=== PATIENT | female | born 1990 | race Caucasian/White ===

== ENCOUNTER 2024-03-23 19:30 | Emergency (ER) | payer OTHER, SELFPAY ==
[2024-03-23 19:35] VITALS: BP 121/76
[2024-03-23 19:54] LABS: % Basophils 0.5 % (0-2); % Eosinophils 2.6 % (0-6); % Immature Granulocytes 0.2 % (0-0.5); % Lymphocytes 36.1 % (20.5-51.1); % Monocytes 6.6 % (1.7-9.3); Absolute Basophils 0.1 10^3/uL (0-0.2); Absolute Eosinophils 0.3 10^3/uL (0-0.7); Absolute Monocytes 0.7 10^3/uL (0.1-0.6); Hematocrit 40.2 % (37.0-47.0); Hemoglobin 14.1 g/dL (12.0-16.0); Mean Corp Hgb Conc. 35.1 g/dL (33.0-37.0); Mean Corpuscular Hgb 29.5 pg (27.0-31.0); Mean Corpuscular Volume 84.1 fL (81.0-99.0); Mean Platelet Volume 10.2 fL (7.4-10.4); Nucleated Red Blood Cells % 0 %; Platelet Count 239 10^3/uL (130-400); Red Blood Cell Count 4.78 10^6/uL (4.20-5.40); Red Cell Dist. Width 12.6 % (11.5-14.5); White Blood Cell Count 11.1 10^3/uL (4.8-10.8)
[2024-03-23 20:12] LABS: HCG, Serum Qualitative Screen Negative
[2024-03-23 20:14] LABS: ALT (SGPT) 14 U/L (0-35); AST (SGOT) 20 U/L (14-36); Albumin 4.2 g/dl (3.5-5.0); Alkaline Phosphatase 57 U/L (38-126); Blood Urea Nitrogen 9 mg/dl (7-17); Calcium 9.4 mg/dl (8.4-10.2); Carbon Dioxide 27 mmol/L (22-30); Chloride 103 mmol/L (98-107); Glucose 111 mg/dl (70-99); Potassium 4.2 mmol/L (3.5-5.1); Sodium 141 mmol/L (135-145); Total Bilirubin 0.2 mg/dl (0.2-1.3); eGFR > 60.00
[2024-03-23 22:36] LABS: Urine Albumin Negative (Neg - Trace); Urine Bilirubin Negative (Negative); Urine Character Clear (Clear); Urine Color Yellow; Urine Glucose Negative (Negative); Urine Ketone Trace (Negative); Urine Leukocyte Negative (Negative); Urine Nitrite Negative (Negative); Urine Occult Blood Negative (Negative); Urine Urobilinogen Negative (Neg - 1+)
--- NOTE | 2024-03-23 22:45 | ED.GENMED ---
History of Present Illness
General
Chief Complaint: Abdominal Pain
Source: patient
Exam Limitations: none
Time Seen by Provider: 03/23/24 22:29
History of Present Illness
History of Present Illness:
This is a 33 year old female that comes in with c/o RLQ pain. States that she was eating dinner when she started with this sharp right lower abd pain. States that she took Advil but this did not help and then she went up stairs and used a heating
pad but this did not help. States that she had a low grade fever at home of 99.2 with nausea and a headache. Denies any chills, chest pain, SOB, vomiting, diarrhea, dizziness, urinary burning.
Past History
Past History
ED Past Medical History: Psychiatric (Anxiety, Depression); Negative Asthma, HTN, Hypercholesterolemia or NIDDM
ED Past Surgical History: Gynecological (tubal, x 2)
Social History
Tobacco: Smoker
Alcohol: Occasional
Personal:
Living: with family
Review of Systems
Review of Systems
All Other Systems: ROS reviewed and negative except as documented in HPI and ROS
Constitutional: Reports fever (Low grade); Denies chills
EENT: Reports no symptoms
Respiratory: Reports no symptoms; Denies cough or trouble breathing
Cardiac: Reports no symptoms; Denies chest pain
ABD/GI: Reports abdominal pain and nausea; Denies vomiting or diarrhea
: Reports no symptoms; Denies dysuria, frequency or urgency
Musculoskeletal: Reports no symptoms
Skin: Reports no symptoms
Neurological: Reports headache; Denies dizzy
Psychiatric: Reports no symptoms
Phy Exam
General Physical Exam
General Presentation: mild distress
General age: appears stated age
General Skin: warm and dry
General Habitus: normal
General Mental: alert
General Hydration: appears well hydrated
ENT Exam
ENT Exam: TM's normal, pharynx normal and neck supple
Eye Exam
Eye Exam: EOMI
Cardiovascular Exam
Cardiovascular Exam: regular rate/rhythm, no edema, no murmur and normal peripheral pulses
Pulmonary Exam
Pulmonary Exam: lungs clear, no respiratory distress, no rales, chest non tender, no crackles, no rhonchi, no wheezing and no cough
Gastrointestinal Exam
Gastrointestinal Exam: normal bowel sounds, soft, no organomegaly, no pulsatile mass, non distended and tender (RLQ tenderness with palpation)
Musculoskeletal Exam
Musculoskeletal Exam: full ROM and no edema
Skin Exam
Skin Exam: normal color, warm/dry, no rash and no petechia
Psychiatric Exam
Psychiatric Exam: normal mood/affect
Course
Orders/Labs/Results
Orders:
Orders
03/23/24 19:32
Test Result ONCE
03/23/24 19:45
US Pelvis W Transvag Combined Urgent
Reason For Exam: Right lower abd pain to groin pain
03/23/24 19:48
Complete Blood Count/With Diff Urgent
Comprehensive Metabolic Panel Urgent
HCG, Serum Qualitative Screen Urgent
03/23/24 22:09
Urinalysis Reflex To Culture Urgent
Date Specimen was Collected: 03/23/24
Time Specimen was Collected: 22:09
03/23/24 22:44
0.9% Sodium Chloride 1000 ml [Nss] 1,000 ml IV BOLUS
Iohexol [Omnipaque] See Protocol PO NOW STA
03/24/24 01:00
CT Abd/pel W Iv And Oral Contr Urgent
Reason For Exam: rlq PAIN
Abnormal Lab Results
03/23/24 03/23/24
19:48 22:09
WBC 11.1 H 10^3/uL
(4.8-10.8)
Absolute Lymphs (auto) 4.0 H 10^3/uL
(1.2-3.4)
Absolute Monos (auto) 0.7 H 10^3/uL
(0.1-0.6)
Glucose 111 H mg/dl
(70-99)
Urine Ketones Trace A
(Negative)
03/23/24 19:48
03/23/24 19:48
WBC very slightly elevated. Glucose nonfasting. HCG negative. Urine negative for infection.
Vital Signs
Initial and Last Documented VS:
Initial Vital Signs
Temp Pulse Resp BP Pulse Ox
98.8 F 74 20 121/76 99
03/23/24 19:35 03/23/24 19:35 03/23/24 19:35 03/23/24 19:35 03/23/24 19:35
Last Documented Vital Signs
Temp Pulse Resp BP Pulse Ox
98.8 F 73 16 113/74 100
03/23/24 19:35 03/24/24 01:15 03/24/24 01:15 03/24/24 01:16 03/24/24 01:15
MDM/Problems Addressed
Differential Diagnosis Includes:
Appendicitis, Ovarian cyst
MDM/Problems Addressed:
This is a 33 year old female that comes in with c/o RLQ pain. States that this has continued to get worse.
Will get labs, CT and US. Will give IV fluids. Offered patient something for pain but patient refused.
Back into see patient. Explained that her blood work shows that her WBC are slightly elevated, otherwise her labs and urine are normal. US and CT scan are normal. There is a follicle on the right and explained that patient may be ovulating form the
right side. Patient to follow up with the family doctor for recheck. Tylenol or ibuprofen for any pain. Return with any concerns.
Chronic conditions affecting care:
NA
Acute Exacerbation and/or Progression of Chronic Illness:
NA
*Radiology
Radiology exam reviewed: radiology read reviewed (US-Normal. CT scan night hawk- No bowel obstruction or inflammation. Normal appendix. Normal-sized ovaries with an involuting follicle on the right. No free fluid. No obstructive uropathy. Scarring
in the left kidney. Unremarkable gallbladder and pancreas. No evidence of an inguinal hernia)
*Pulse Oximetry
Patient hypoxic: no
*EKG
Interpreted by ED Provider?: NA
Rate: EKG- N/A
*Plug Overwrap Machine Tender Interpretation
Rate: Plug Overwrap Machine Tender- N/A
*Critical Care Note
Total Time (30-74mins, 75-104mins- exclusive of procedures): Not Applicable
ED Attending Note
-
Portions of this chart may have been created with voice recognition software.� Occasional wrong word or��sound alike� substitutions may have occurred due to the inherent limitations of voice recognition software.
Discharge Plan
Departure
Patient Disposition: Home (Routine Discharge)
Date of Disposition: 03/24/24
Time of Disposition: 02:16
Patient with high blood pressure during this ER visit?: No
Condition: Good
Covid-19: Not Applicable
Discharge Problem:
Right-sided abdominal pain of unknown cause
Instructions: Abdominal Pain
Referrals:
Swapna Hooks DO [Family Provider] - Call in 1-3 days for appt
Activity Restrictions/Additional Instructions:
As discussed, your blood work shows that the white blood cells are slightly elevated. This can go up with stress. Your Urine is negative for infection. Your Ultrasound and CT scan are both normal. Appendix is normal and there is no bowel obstruction
or inflammation. There is a follicle in the right ovary and you may just be feeling the ovulation on this side. You may use Tylenol or Ibuprofen for pain. Follow up with the family doctor for recheck as needed. IF YOU HAVE INCREASED OR CHANGING
PAIN, FEVER, VOMITING, OR YOU HAVE ANY OTHER CONCERNS PLEASE RETURN TO THE EMERGENCY ROOM.
Interventions
Interventions:
*Risk Screen - Suicide Last Done: 03/23/24 19:35
*General Assessment Last Done: 03/23/24 19:35
*Neglect/Abuse Screening Last Done: 03/23/24 19:35
ED- Fall Risk Assessment Last Done: 03/23/24 19:35
*ED COVID-19 Vaccine History Last Done: 03/23/24 19:35
PJ-Jetyiu-Gzifqesgdv Assessment Last Done: 03/23/24 23:01
Discharge Date and Time
Print Language: CYPRIOT
[2024-03-23 22:46] VITALS: BP 103/64
[2024-03-23] MEDS: OMNIPAQUE 960 ML PO (22:59)
[2024-03-23] MEDS: NSS 1000 IV (22:59)
[2024-03-24 01:16] VITALS: BP 113/74
== END 2024-03-24 02:36 | disposition home or self-care (01) ==
LOC: EMR 19:30
PROVIDERS: Student in an Organized Health Care Education/Training Program; EMERGENCY PHYSICIAN Emergency Medicine; FAMILY PHYSICIAN Family Medicine
DX: R10.31 Right lower quadrant pain (principal); F17.200 Nicotine dependence, unspecified, uncomplicated
CPT/HCPCS: 99285; 96360; 74177; 76830; 76856; 80053; 81003; 84703; 85025; Q9967